=== PATIENT | female | born 1965 | race Two or more races ===

== ENCOUNTER 2022-08-21 19:51 | Emergency (ER) | payer MEDICAID, OTHER ==
[~2022-08-21] VITALS: Ht 157.5 cm; Wt 104.5 kg
[2022-08-21 20:18] VITALS: BP 160/74
[2022-08-21] MEDS ORDERED: KETOROLAC TROMETH 60MG/2ML VIAL IM ONE (23:45)
[2022-08-22] MEDS ORDERED: BENZOCAINE (DENTAL) 20 % SPRAY 60ML MT ONE (00:30)
[2022-08-22] MEDS ORDERED: IBUP800T27 PO (00:40)
[2022-08-22] MEDS ORDERED: AMOX-277 PO (00:40)
== END 2022-08-22 00:48 | disposition home or self-care (01) ==
LOC: ER 19:51
DX: K04.7 Periapical abscess without sinus (principal); I10 Essential (primary) hypertension; E11.9 Type 2 diabetes mellitus without complications; F17.210 Nicotine dependence, cigarettes, uncomplicated; Z79.1 Long term (current) use of non-steroidal anti-inflammatories (NSAID); Z79.2 Long term (current) use of antibiotics
CPT/HCPCS: 82962; 96372; 99283; J1885